=== PATIENT | male | born 2000 | race Hispanic/Latino ===

== ENCOUNTER 2023-02-24 16:29 | Emergency (ER) | payer SELFPAY ==
[~2023-02-24] VITALS: Ht 157.5 cm; Wt 68.0 kg
[2023-02-24 17:11] VITALS: BP 117/78
[2023-02-24 17:30] VITALS: BP 118/77
[2023-02-24 18:00] VITALS: BP 116/80
[2023-02-24] MEDS ORDERED: AMOX/K CLAV875 M1 PO (18:03)
[2023-02-24 18:25] VITALS: BP 116/80
== END 2023-02-24 18:27 | disposition home or self-care (01) | DRG 153 ==
LOC: ED 16:29
DX: H66.92 Otitis media, unspecified, left ear (principal); Z20.822 Contact with and (suspected) exposure to COVID-19